=== PATIENT | male | born 1995 | race American Indian/Alaskan Native ===

== ENCOUNTER 2019-02-21 07:01 | Emergency (ER) | payer SELFPAY ==
[2019-02-21 07:31] VITALS: BP 135/82
--- NOTE | 2019-02-21 08:19 | Emergency Department Report ---
[facility] Chief Complaint: Eye Problems Stated Complaint: PINK EYE, CONGESTION Time Seen by Provider: 02/21/19 08:04 Duration: 3 Days Side: Left Severity: moderate Symptoms: Yes Eye Itching, Yes Eye Redness, Yes Mucous Drainage, Yes Purulent Drainage, Yes Blurred Vision, No Preceding URI, No H/O Allergic Rhinitis, No Contact Lens Use, No Trauma (patient states that some unknown liquid got in his eye 5 days ago at work), No Fever, No Headache ED Review of Systems ROS: Stated complaint: PINK EYE, CONGESTION Other details as noted in HPI Comment: All other systems reviewed and negative ED Past Medical Hx - Past Medical History Previous Medical History?: No - Surgical History Past Surgical History?: No - Social History Smoking Status: Never Smoker Substance Use Type: None - Medications Home Medications: Home Medications Medication Instructions Recorded Confirmed Last Taken Type Gentamicin 0.3% Ophth Soln 2 drops OP Q4H #1 bottle 02/21/19 Unknown Rx Naphazoline HCl/Pheniramine 2 drop OP TID #1 bottle 02/21/19 Unknown Rx [Naphcon-A Eye Drops] [facility] Exam - Exam General: Vital signs noted. No distress. Alert and acting appropriately. Eye Exam: Left Injection, Left Chemosis, Left Mucous Discharge, Left Purulent Discharge, Both EOMI, Neither Abnormal Pupil, Neither Eye Foreign Body, Neither Lid Foreign Body, Neither Fluorescein Uptake, Neither Fluorescein Uptake (slit lamp), Neither Cell/Flare (slit lamp), Neither Corneal Edema, Neither Photophobia HEENT: No Nasal Congestion, No Pharyngeal Erythema Remainder of HEENT: Normal Lungs: Yes Clear Lung Sounds, Yes Good Air Exchange, No Wheezes, No Stridor, No Cough, No Nasal Flaring, No Retractions, No Use of Accessory Muscles ED Course Vital Signs 02/21/19 07:26 Temperature 98.3 F Pulse Rate 68 Respiratory 20 Rate Blood Pressure 135/82 O2 Sat by Pulse 100 Oximetry Critical care attestation.: If time is entered above; I have spent that time in minutes in the direct care of this critically ill patient, excluding procedure time. ED Disposition Clinical Impression: Acute bacterial conjunctivitis of left eye Disposition: DC-01 TO HOME OR SELFCARE Is pt being admited?: No Does the pt Need Aspirin: No Condition: Stable Instructions: Conjunctivitis (ED) Referrals: MIREYA CHÁVEZ MD [Primary Care Provider] - 3-5 Days Time of Disposition: 08:18
== END 2019-02-21 08:35 | disposition home or self-care (01) ==
LOC: ED 07:01
DX: H10.32 Unspecified acute conjunctivitis, left eye (principal)
CPT/HCPCS: 99282

== ENCOUNTER 2019-07-01 18:39 | Emergency (ER) | payer SELFPAY ==
[2019-07-01 19:54] VITALS: BP 156/93
[2019-07-01] MEDS ORDERED: NORCO 5/325 PO ONE (20:05)
--- NOTE | 2019-07-01 20:08 | Emergency Department Report ---
Chief Complaint: Dental/Oral Stated Complaint: SEVERE TOOTHACHE Time Seen by Provider: 07/01/19 20:04 - HPI History of Present Illness: This is a 23-year-old male nontoxic well in appearance with no signs of distress presents to the ED with complaint of toothache. Patient states symptoms started today while at work. Patient denies any facial swelling. Denies following up with a dentist. Denies any fever, chills, headache, nausea, vomiting, chest pain or SOB. Denies any other complaints. - Exam Vital Signs: Vital Signs 07/01/19 19:51 Temperature 99.6 F Pulse Rate 67 Respiratory 18 Rate Blood Pressure 156/93 O2 Sat by Pulse 98 Oximetry MSE screening note: Focused history and physical exam performed. Due to findings the following was ordered: ED Disposition for MSE Clinical Impression: Dental caries, Toothache Disposition: - TO HOME OR SELFCARE Is pt being admited?: No Does the pt Need Aspirin: No Condition: Stable Instructions: Dental Caries (ED), Toothache (ED) Prescriptions: Clindamycin [Clindamycin CAP] 300 mg PO Q8H #21 cap Ibuprofen [Motrin 600 MG tab] 600 mg PO Q8H PRN #20 tablet PRN Reason: Pain traMADol [Ultram 50 MG tab] 50 mg PO Q6HR PRN #12 tablet PRN Reason: Pain Referrals: [facility] [Outside] - 3-5 Days [facility] [Outside] - 3-5 Days [facility] [Outside] - 3-5 Days Forms: Work/School Release Form(ED) Time of Disposition: 21:18
== END 2019-07-01 21:32 | disposition home or self-care (01) ==
LOC: ED 18:39
DX: K02.9 Dental caries, unspecified (principal); Z88.0 Allergy status to penicillin